=== PATIENT | male | born 1995 | race Two or more races ===

== ENCOUNTER 2018-07-26 13:05 | Emergency (ER) | payer OTHER ==
[2018-07-26 13:11] VITALS: BMI 22.4
--- NOTE | 2018-07-26 13:53 | PDOC ---
History of Present Illness - General Chief Complaint: Pain Stated Complaint: ABD PAIN Time Seen by Provider: 07/26/18 13:18 Past History - Past Medical History Allergies/Adverse Reactions: Allergies Allergy/AdvReac Type Severity Reaction Status Date / Time No Known Allergies Allergy Verified 07/26/18 13:11 Home Medications: Ambulatory Orders Ondansetron [Zofran Odt -] 4 mg SL TID #10 od.tablet 07/26/18 Ranitidine [Zantac -] 150 mg PO BID #14 tablet 07/26/18 COPD: No - Suicide/Smoking/Psychosocial Hx Smoking History: Current some day smoker Information on smoking cessation initiated: No *Physical Exam - Vital Signs Last Vital Signs Temp Pulse Resp BP Pulse Ox 98.2 F 91 H 18 152/80 99 07/26/18 13:07 07/26/18 13:07 07/26/18 13:07 07/26/18 13:07 07/26/18 13:07 ED Treatment Course - LABORATORY CBC & Chemistry Diagram: 07/26/18 14:01 07/26/18 14:00 *DC/Admit/Observation/Transfer Diagnosis at time of Disposition: Gastroenteritis - Discharge Dispostion Disposition: HOME Condition at time of disposition: Stable Decision to Admit order: No - Referrals Referrals: Juan Daniel Cutler [Primary Care Provider] - - Patient Instructions Printed Discharge Instructions: DI for Viral Gastroenteritis -- Adult Additional Instructions: You have vomiting. Take the Zofran and Zantac as prescribed Avoid all dairy products until 48 hours after the vomiting/diarrhea has resolved. Eat a bland diet including apple sauce, toast, bananas, and plain rice Drink plenty of fluids including pedialyte, watered down juices and water Avoid alcohol and smoking Follow up with your primary care doctor this week Return to the ED if you develop fevers, abdominal pain, worsening vomiting, or if you have any changes in your symptoms. - Post Discharge Activity Forms/Work/School Notes: Back to Work
[2018-07-26] MEDS ORDERED: FAMOTIDINE 20 MG/50 ML IVPB 20 MG/50 ML MG IVPB ONE ×2 (13:54→14:07)
[2018-07-26] MEDS ORDERED: SODIUM CHLORIDE 1,000 ML IV STA (13:54)
[2018-07-26] MEDS ORDERED: ONDANSETRON 4 MG/2 ML VIAL IVPUSH ONE (13:54)
[2018-07-26] MEDS ORDERED: ONDANSETRON 4 MG/2 ML VIAL ONE (14:07)
[2018-07-26 14:33] LABS: BASO % 0.3 % (0-2.0); EOS % 0.3 % (0-4.5); HEMATOCRIT 43.4 % (35.4-49); HEMOGLOBIN 14.9 GM/dL (11.7-16.9); MCH 32.2 pg (25.7-33.7); MCHC 34.2 g/dl (32.0-35.9); MEAN CELL VOLUME 94.1 fl (80-96); MEAN PLT VOLUME 7.5 fl (7.5-11.1); MONO % 6.4 % (3.8-10.2); RBC 4.61 M/mm3 (4.00-5.60); RDW 13.6 % (11.9-15.9); WHITE BLOOD COUNT 10.4 K/mm3 (4.0-10.0)
[2018-07-26 15:01] LABS: BLOOD UREA NITROGEN 10.3 mg/dL (7-18); CREATININE 0.9 mg/dL (0.55-1.3); POTASSIUM 4.1 mmol/L (3.5-5.1); TOT PROT 7.6 g/dl (6.4-8.2)
[2018-07-26 15:45] LABS: PH,URINE 7.5 (5.0-8.0); URINE APPEARANCE CLEAR; URINE BILIRUBIN NEGATIVE (NEGATIVE); URINE COLOR YELLOW; URINE GLUCOSE (UA) NEGATIVE (NEGATIVE); URINE KETONE NEGATIVE (NEGATIVE); URINE LEUK ESTERASE NEGATIVE (NEGATIVE); URINE NITRITE NEGATIVE (NEGATIVE); URINE PROTEIN NEGATIVE (NEGATIVE); URINE UROBILINOGEN 0.2 mg/dL (0.2-1.0)
[2018-07-26 15:56] VITALS: BP 130/78; PULSE 60; TEMP 98.7
[2018-07-26 18:48] LABS: PLATELET COUNT 374 K/MM3 (134-434)
== END 2018-07-26 16:30 | disposition home or self-care (01) ==
LOC: JER 13:05
PROC: 3E033GC Introduction of Other Therapeutic Substance into Peripheral Vein, Percutaneous Approach (ICD-10-PCS; principal; 2018-07-26)
PROC: 3E033GC Introduction of Other Therapeutic Substance into Peripheral Vein, Percutaneous Approach (ICD-10-PCS; 2018-07-26)
DX: K52.9 Noninfective gastroenteritis and colitis, unspecified (principal)
CPT/HCPCS: 36415; 80053; 81003; 83690; 85025; 87086; 96365; 96375; 99283-25; J7030

== ENCOUNTER 2021-07-29 20:26 | Emergency (ER) | payer OTHER ==
[2021-07-29 20:36] VITALS: BP 132/80; PULSE 93; TEMP 98.3; BMI 25.2
[2021-07-29] MEDS ORDERED: TETRACAINE 0.5% HCL 0.6ML DROPPER.BOTTLE OD ONE (21:45)
[2021-07-29] MEDS ORDERED: FLUORESCEIN NA 1 EA STRIP OD ONE (21:45)
[2021-07-29] MEDS ORDERED: FLUORESCEIN NA 1 EA STRIP ONE (22:01)
[2021-07-29] MEDS ORDERED: TETRACAINE 0.5% OPHTH SOLN 2 ML BOTTLE ONE (22:01)
[2021-07-29] MEDS ORDERED: BACITRACIN/POLYMYXIN OPH OINT 3.5 GM TUBE OD ONE (22:56)
== END 2021-07-29 23:21 | disposition home or self-care (01) ==
LOC: JER 20:26 → JERFT 20:26
DX: B30.9 Viral conjunctivitis, unspecified (principal)
CPT/HCPCS: 99283-25

== ENCOUNTER 2022-09-08 14:40 | Emergency (ER) | payer OTHER ==
[2022-09-08 15:11] VITALS: BP 144/91; PULSE 87; RESP 18
== END 2022-09-08 18:29 | disposition home or self-care (01) ==
LOC: JER 14:40 → JERFT 14:40
DX: R22.42 Localized swelling, mass and lump, left lower limb (principal); S80.12XA Contusion of left lower leg, initial encounter; X58.XXXA Exposure to other specified factors, initial encounter; Y93.01 Activity, walking, marching and hiking
CPT/HCPCS: 93971-TC; 99284-25

== ENCOUNTER 2023-01-05 15:10 | Emergency (ER) | payer OTHER ==
[2023-01-05 15:13] VITALS: BP 142/84; TEMP 98; BMI 25.7
[2023-01-05] MEDS ORDERED: diphenhydrAMINE HCL 25 MG CAPSULE (FP) PO ONE ×2 (16:38→16:47)
[2023-01-05] MEDS ORDERED: DEXAMETHASONE SOD PHOSPHATE 10 MG/1 ML VIAL IM ONE (16:38)
[2023-01-05] MEDS ORDERED: DEXAMETHASONE SOD PHOSPHATE 10 MG/1 ML VIAL ONE (16:48)
[2023-01-05 17:31] VITALS: PULSE 82; RESP 16
== END 2023-01-05 17:20 | disposition home or self-care (01) ==
LOC: JER 15:10 → JERFT 15:10
PROC: 3E023GC Introduction of Other Therapeutic Substance into Muscle, Percutaneous Approach (ICD-10-PCS; principal; 2023-01-05)
DX: H57.89 Other specified disorders of eye and adnexa (principal); L29.9 Pruritus, unspecified; L50.9 Urticaria, unspecified
CPT/HCPCS: 99284-25; J1100

== ENCOUNTER 2023-02-11 09:07 | Emergency (ER) | payer OTHER ==
[2023-02-11 09:32] VITALS: BP 138/89; PULSE 97; RESP 18; TEMP 98.3; BMI 27.7
[2023-02-11] MEDS ORDERED: ACETAMINOPHEN 325 MG TABLET (FP) PO ONE (09:41)
[2023-02-11] MEDS ORDERED: IBUPROFEN 400 MG TABLET (FP) PO ONE ×2 (09:41→09:45)
[2023-02-11] MEDS ORDERED: ACETAMINOPHEN 325 MG TABLET (FP) ONE (09:45)
== END 2023-02-11 11:27 | disposition home or self-care (01) ==
LOC: JER 09:07
DX: M25.561 Pain in right knee (principal); M25.571 Pain in right ankle and joints of right foot; W01.0XXA Fall on same level from slipping, tripping and stumbling without subsequent striking against object, initial encounter; Y92.9 Unspecified place or not applicable
CPT/HCPCS: 73564-TC-RT-FY; 73590-TC-RT-FY; 73610-TC-RT-FY; 73630-TC-RT-FY; 99283-25

== ENCOUNTER 2023-03-01 20:25 | Emergency (ER) | payer OTHER ==
[2023-03-01 20:30] VITALS: BP 160/90; PULSE 98; RESP 18; TEMP 97.9; BMI 27.3
== END 2023-03-01 22:20 | disposition home or self-care (01) ==
LOC: JERFT 20:25
DX: M79.662 Pain in left lower leg (principal)
CPT/HCPCS: 93971-TC; 99284-25

== ENCOUNTER 2023-05-26 04:51 | Emergency (ER) | payer OTHER ==
[2023-05-26 05:01] VITALS: BP 151/92; PULSE 98; RESP 19; TEMP 97.7; BMI 27.6
[2023-05-26] MEDS ORDERED: ACETAMINOPHEN 325 MG TABLET (FP) ONE (05:52)
[2023-05-26] MEDS ORDERED: LIDOCAINE 4% PATCH TP ONE (05:52)
[2023-05-26] MEDS: ACETAMINOPHEN 500 MG TABLET (FP) PO ONE (05:58)
[2023-05-26] MEDS: LIDOCAINE 4% PATCH TP ONE (05:58)
[2023-05-26] MEDS ORDERED: LIDOCAINE PATCH REMOVAL MC SCH (22:00)
== END 2023-05-26 06:31 | disposition home or self-care (01) ==
LOC: JER 04:51
DX: R07.89 Other chest pain (principal)
CPT/HCPCS: 71046-TC-FY; 93005; 93010; 99284-25

== ENCOUNTER 2023-07-24 15:14 | Emergency (ER) | payer OTHER ==
[2023-07-24 15:25] VITALS: BMI 25.7
[2023-07-24] MEDS ORDERED: ACETAMINOPHEN INJECTION 100 ML IVPB ONE (16:44)
[2023-07-24] MEDS: ACETAMINOPHEN 1000 MG/100 ML BAG IVPB ONE (17:00)
[2023-07-24 17:34] LABS: BASO % 0.5 % (0-2.0); HEMATOCRIT 42.4 % (35.4-49); LYMPH % 20.4 % (8-40); MCH 32.9 pg (25.7-33.7); MCHC 32.9 g/dl (32.0-35.9); MEAN CELL VOLUME 100.1 fl (80-96); MEAN PLT VOLUME 8.5 fl (7.5-11.1); MONO % 14.8 % (3.8-10.2); NEUT % 62.3 % (42.8-82.8); PLATELET COUNT 208 10^3/uL (134-434); RBC 4.24 M/mm3 (4.00-5.60); RDW 13.7 % (11.9-15.9); WHITE BLOOD COUNT 8.7 K/mm3 (4.0-10.0)
[2023-07-24 17:50] LABS: POTASSIUM 3.7 mmol/L (3.5-5.1)
[2023-07-24 17:52] LABS: CALCIUM 9.5 mg/dL (8.5-10.1)
[2023-07-24 17:53] LABS: ALBUMIN 3.8 g/dl (3.4-5.0); BLOOD UREA NITROGEN 7.8 mg/dL (7-18)
[2023-07-24 17:56] LABS: CREATININE 0.7 mg/dL (0.55-1.3)
[2023-07-24 17:57] LABS: TOT PROT 8.1 g/dl (6.4-8.2)
[2023-07-24 18:43] LABS: BASO % 0.6 % (0-2.0); EOS % 2.3 % (0-4.5); HEMATOCRIT 43.1 % (35.4-49); HEMOGLOBIN 14.5 GM/dL (11.7-16.9); LYMPH % 18.8 % (8-40); MCH 33.2 pg (25.7-33.7); MCHC 33.5 g/dl (32.0-35.9); MEAN CELL VOLUME 98.9 fl (80-96); MEAN PLT VOLUME 8.3 fl (7.5-11.1); MONO % 16.3 % (3.8-10.2); PLATELET COUNT 221 10^3/uL (134-434); RBC 4.36 M/mm3 (4.00-5.60); RDW 13.1 % (11.9-15.9); WHITE BLOOD COUNT 9.5 K/mm3 (4.0-10.0)
[2023-07-24 18:50] LABS: INR 0.87 (0.83-1.09)
[2023-07-24 20:33] VITALS: BP 144/97; PULSE 100; RESP 20; TEMP 98.3
== END 2023-07-24 21:54 | disposition short-term general hospital (02) ==
LOC: JER 15:14
DX: M79.672 Pain in left foot (principal); M00.9 Pyogenic arthritis, unspecified; Z20.822 Contact with and (suspected) exposure to COVID-19
CPT/HCPCS: 0241U-QW; 36415; 73590-TC-LT-FY; 73610-TC-LT-FY; 73630-TC-LT; 80053; 85025; 85610; 85651; 86140; 87040; 99285-25

== ENCOUNTER 2023-09-30 20:35 | Emergency (ER) | payer OTHER ==
[2023-09-30 20:43] VITALS: BMI 26.6
[2023-09-30] MEDS ORDERED: ONDANSETRON 4 MG/2 ML VIAL ONE (21:12)
[2023-09-30] MEDS ORDERED: MAG HYDROX/AL HYDROX/SIMETH 30 ML UNIT-DOSE CUP ONE (21:12)
[2023-09-30] MEDS ORDERED: FAMOTIDINE 20 MG/50 ML IVPB 20 MG/50 ML MG IVPB ONE (21:12)
[2023-09-30] MEDS: SODIUM CHLORIDE 0.9% 500 ML INFUS.BAG IV ONE ×2 (21:32→22:45)
[2023-09-30] MEDS: MAG HYDROX/AL HYDROX/SIMETH 30 ML UNIT-DOSE CUP PO ONE (21:32)
[2023-09-30] MEDS: FAMOTIDINE 20 MG TABLET PO ONE (21:32)
[2023-09-30] MEDS: ONDANSETRON 4 MG/2 ML VIAL IVPUSH ONE (21:33)
[2023-09-30 21:37] LABS: BASO % 0.2 % (0-2.0); EOS % 0.3 % (0-4.5); HEMATOCRIT 43.5 % (35.4-49); HEMOGLOBIN 15.1 GM/dL (11.7-16.9); LYMPH % 7.6 % (8-40); MCH 31.7 pg (25.7-33.7); MCHC 34.7 g/dl (32.0-35.9); MEAN CELL VOLUME 91.4 fl (80-96); MEAN PLT VOLUME 7.9 fl (7.5-11.1); MONO % 8.7 % (3.8-10.2); NEUT % 83.2 % (42.8-82.8); PLATELET COUNT 171 10^3/uL (134-434); RBC 4.76 M/mm3 (4.00-5.60); RDW 14.3 % (11.9-15.9); WHITE BLOOD COUNT 6.7 K/mm3 (4.0-10.0)
[2023-09-30 22:12] LABS: CHLORIDE 91 mmol/L (98-107); SODIUM 129 mmol/L (136-145)
[2023-09-30 22:15] LABS: ALBUMIN 3.8 g/dl (3.4-5.0); BLOOD UREA NITROGEN 8.4 mg/dL (7-18); CALCIUM 9.3 mg/dL (8.5-10.1); CO2 25 mmol/L (21-32); GLUCOSE,RANDOM 132 mg/dL (74-106)
[2023-09-30 22:18] LABS: CREATININE 0.9 mg/dL (0.55-1.3); SGOT/AST 123 U/L (15-37); SGPT/ALT 102 U/L (13-61)
[2023-09-30 22:19] LABS: BILIRUBIN,TOTAL 0.6 mg/dL (0.2-1)
[2023-09-30 22:20] LABS: TOT PROT 7.8 g/dl (6.4-8.2)
[2023-09-30 22:21] LABS: ALK PHOS 76 U/L (45-117)
[2023-09-30 22:22] LABS: ANION GAP 13 mmol/L (4-13); POTASSIUM 2.8 mmol/L (3.5-5.1)
[2023-09-30] MEDS: KCL 10 MEQ IVPB 10 MEQ/100 ML INFUS.BAG IVPB SCH (22:45)
[2023-10-01] MEDS ORDERED: POTASSIUM CHLORIDE ORAL LIQUID 20 MEQ/15 ML ONE (01:06)
[2023-10-01] MEDS: POTASSIUM CHLORIDE ORAL LIQUID 20 MEQ/15 ML PO ONE (01:11)
[2023-10-01 02:01] LABS: POTASSIUM 3.8 mmol/L (3.5-5.1)
[2023-10-01 02:02] LABS: CALCIUM 8.4 mg/dL (8.5-10.1)
[2023-10-01 02:03] LABS: BLOOD UREA NITROGEN 6.8 mg/dL (7-18)
[2023-10-01 02:06] LABS: CREATININE 0.8 mg/dL (0.55-1.3)
[2023-10-01 02:55] LABS: POTASSIUM 3.6 mmol/L (3.5-5.1)
[2023-10-01 02:57] LABS: BLOOD UREA NITROGEN 7.6 mg/dL (7-18); CALCIUM 8.3 mg/dL (8.5-10.1)
[2023-10-01 03:01] LABS: CREATININE 0.9 mg/dL (0.55-1.3)
[2023-10-01 03:28] VITALS: BP 134/90; PULSE 96; RESP 13; TEMP 99
== END 2023-10-01 03:38 | disposition home or self-care (01) ==
LOC: JER 20:35
PROC: 3E033GC Introduction of Other Therapeutic Substance into Peripheral Vein, Percutaneous Approach (ICD-10-PCS; principal; 2023-09-30)
DX: E87.6 Hypokalemia (principal); R11.2 Nausea with vomiting, unspecified; R10.13 Epigastric pain; R50.9 Fever, unspecified; Z20.822 Contact with and (suspected) exposure to COVID-19
CPT/HCPCS: 0241U-QW; 36415; 76705-TC; 80048; 80053; 83690; 85025; 93005; 93010; 99285-25

== ENCOUNTER 2024-06-30 00:11 | Emergency (ER) | payer OTHER ==
[2024-06-30 00:21] VITALS: TEMP 98.6; BMI 24.5
[2024-06-30] MEDS ORDERED: IBUPROFEN 400 MG TABLET (FP) PO ONE (01:01)
[2024-06-30] MEDS: SODIUM CHLORIDE 0.9% 500 ML INFUS.BAG IV ONE (01:14)
[2024-06-30] MEDS: IBUPROFEN 400 MG TABLET (FP) PO ONE (01:14)
[2024-06-30 01:19] LABS: ABSOLUTE IMMATURE GRANULOCYTES 0.01 x10^3/uL (0.0-0.031); BASOPHILS # 0.04 x10^3/uL (0.01-0.08); EOSINOPHIL % 3.1 % (0.8-7.0); EOSINOPHILS # 0.18 x10^3/uL (0.04-0.54); HEMATOCRIT 36.5 % (40.1-51.0); HEMOGLOBIN 12.8 g/dL (13.7-17.5); MCHC 35.1 g/dl (32.3-36.5); MEAN CELL VOLUME 101.7 fl (79.0-92.2); MEAN PLT VOLUME 9.8 fl (9.4-12.4); MONOCYTE # 0.59 x10^3/uL (0.30-0.82); MONOCYTE % 10.1 % (5.3-12.2); PLATELET COUNT 155 x10^3/uL (163-337); RDW 13.5 % (11.9-15.3)
[2024-06-30 02:21] VITALS: RESP 19
[2024-06-30 02:48] LABS: HIV INTERPRETATION NEGATIVE (NEGATIVE)
[2024-06-30 02:49] LABS: HCV DIAGNOSTIC IN-HOUSE W/RFLX NON-REACTIVE (NONREACTIVE)
[2024-06-30 03:01] VITALS: BP 120/75; PULSE 92
== END 2024-06-30 03:02 | disposition home or self-care (01) ==
LOC: JER 00:11
DX: R07.89 Other chest pain (principal); R05.9 Cough, unspecified; J34.89 Other specified disorders of nose and nasal sinuses; R09.81 Nasal congestion; F10.90 Alcohol use, unspecified, uncomplicated; R11.0 Nausea; R06.00 Dyspnea, unspecified
CPT/HCPCS: 0241U-QW; 36415; 71045-TC-FY; 84484; 85025; 86803; 87389; 93005; 93010; 99285-25

== ENCOUNTER 2024-10-20 15:41 | Emergency (ER) | payer OTHER ==
[2024-10-20 15:59] VITALS: BP 144/97; PULSE 99; RESP 18; TEMP 98; BMI 23.6
[2024-10-20 17:25] LABS: GLUCOSE,RANDOM 78.0 mg/dL (74-106); TOT PROT 7.7 g/dl (6.4-8.2)
[2024-10-20 17:27] LABS: CO2 24.0 mmol/L (21-32)
[2024-10-20 17:28] LABS: ALK PHOS 196.0 U/L (40-150)
[2024-10-20 17:29] LABS: ABSOLUTE IMMATURE GRANULOCYTES 0.03 x10^3/uL (0.0-0.031); BASOPHILS # 0.13 x10^3/uL (0.01-0.08); EOSINOPHIL % 3.2 % (0.8-7.0); EOSINOPHILS # 0.37 x10^3/uL (0.04-0.54); MCHC 33.0 g/dl (32.3-36.5); MEAN CELL VOLUME 99.7 fl (79.0-92.2); MEAN PLT VOLUME 9.7 fl (9.4-12.4); MONOCYTE # 1.20 x10^3/uL (0.30-0.82); MONOCYTE % 10.4 % (5.3-12.2); RDW 14.0 % (11.9-15.3)
[2024-10-20 17:31] LABS: CREATININE 0.87 mg/dL (0.55-1.3); SGOT/AST 281.0 U/L (5-34); SGPT/ALT 121.0 U/L (0-55)
[2024-10-20 17:53] LABS: HCV DIAGNOSTIC IN-HOUSE W/RFLX NON-REACTIVE (NONREACTIVE); HIV INTERPRETATION NEGATIVE (NEGATIVE)
== END 2024-10-20 20:07 | disposition home or self-care (01) ==
LOC: JERFT 15:41
DX: R74.01 Elevation of levels of liver transaminase levels (principal); R20.2 Paresthesia of skin
CPT/HCPCS: 36415; 70450-TC; 72131-TC; 73610-TC-LT-FY; 73630-TC-LT; 80053; 83735; 85025; 86803; 87389; 99285-25